=== PATIENT | male | born 1965 | race Caucasian/White ===

== ENCOUNTER → 2021-03-24 08:53 | Outpatient (BNVA) | payer BC, SELFPAY | PROVIDERS: PCP Internal Medicine; Visit Provider Urology ==

== ENCOUNTER → 2021-09-21 08:36 | Outpatient (BNVA) | payer BC, SELFPAY | PROVIDERS: PCP Internal Medicine; Visit Provider Urology | DX: Z13.89 Encounter for screening for other disorder (principal) ==

== ENCOUNTER 2023-01-15 08:26 | Outpatient (AMB) | payer BC, SELFPAY ==
--- NOTE | 2023-01-15 08:32 | A.OFFVIS_ITS ---
Intake Intake Visit Reasons: ED- follow up Intake Note: Patient is present for Follow Up Erectile Dysfunction Urology Med: Sildenafil, Tadalafil (Patient request refill on both) Antibiotic Allergy:None Blood Thinner: None [facility] Allergies No Known Allergies Allergy (Verified 01/15/23 08:34) Medication List - Last Reconciled 01/15/23 by Deepak Vasquez MD atorvastatin 20 mg PO DAILY levothyroxine 137 mcg PO DAILY levothyroxine 150 mcg PO DAILY metformin 500 mg PO DAILY metformin ER 500 mg PO DAILY prednisolone acetate 1% 0 drps ophthalmic (eye) Saccharomyces boulardii (Digest Probiotic (S.boulardii)) 250 mg PO DAILY sildenafil 100 mg PO ONCE PRN 30 days tadalafil 5 mg PO DAILY PRN 90 days HPI HPI Comments History of Present Illness Details Michele is a very pleasant male. He is a patient of Dr Hall. He is seen for the following urologic conditions. - erectile dysfunction Using daily tadalafil with on demand sildenafil - 5 mg and 100 mg Is having issues reaching climax May well represent slow progression for background diabetes Six month follow-up check testosterone as reports variable libido Erectile dysfunction:? In setting of diabetes ? He presents today for?for continued evaluation and management of erectile dysfunction.? Symptoms have been present for/since?ongoing.? Current treatment includes?Viagra/sildenafil - with daily tadalafil ? Prior therapies include?oral medications.? At this time he experiences erections?are partial and adequate for vaginal penetration, that undergo rapid detumesence after penetration, KAREN 8-11 Moderate ED.? Nocturnal erections?do occur.? Currently they are?in a stable relationship.? Therapeutic plan includes?- 6 month [facility] Medical History Erectile dysfunction due to arterial insufficiency Hypothyroidism Pre-diabetes Review of Systems Const Denies chills and Denies fever(s) Card Reports no additional complaints and Denies syncope Resp Denies cough GI Denies abdominal pain and Denies heartburn Reports as per HPI and Denies change in libido Neuro Denies syncope Psych Denies change in libido Endo Denies change in libido Physical Exam Const General: cooperative, healthy appearing, comfortable and no acute distress Orientation/consciousness: patient oriented x3 HEENT Face and sinus: Yes normal facial exam Mouth: moist mucous membranes Neck Neck: Yes normal visual inspection, Yes full ROM and Yes trachea midline Chest Chest palpation & inspection: normal inspection of the chest Resp Effort & Inspection: normal respiratory effort, able to speak in complete sentences and no respiratory distress GI Inspection: Yes normal to inspection Back/Spine/Pelvis Cervical Spine: normal cervical lordosis Thoracic/Lumbar Spine: thoracic and lumbar spine normal to inspection Skin General skin exam: no rashes or lesions noted Neuro General: patient oriented x3, gait normal, tone normal and moves all extremities Extrem General: Yes normal to inspection and Yes capillary refill normal Assessment & Plan Assessment & Plan (1) Low libido: Code(s): R68.82 - Decreased libido (2) Erectile dysfunction associated with type 2 diabetes mellitus: Code(s): E11.69 - Type 2 diabetes mellitus with other specified complication; N52.1 - Erectile dysfunction due to diseases classified elsewhere Plan Six month follow-up lab Orders: Orders Testosterone, Free/Total 6 Months R68.82 - Decreased libido Medications: Refilled tadalafil 5 mg PO DAILY PRN 90 tabs 1RF sexual activity 90 days E11.69 - Type 2 diabetes mellitus with other specified complication, N52.1 - Erectile dysfunction due to diseases classified elsewhere sildenafil administer 30 minutes to 4 hours before activity 100 mg PO ONCE PRN 30 tabs 1RF sexual activity 30 days Patient Instructions: Imaging studies, laboratory and physical exam results were discussed and reviewed in detail. No major barriers to patient understanding were identified. An opportunity to ask questions regarding the treatment plan was provided. All questions were answered. The patient expressed understanding and agreement with the above treatment plan. The patient is aware they should contact our office by phone for worsening of their current condition or the appearance of new urologic symptoms. Compliance is encouraged with any medications and followup testing that is ordered. It is a privilege to participate in the urologic care of your patient. If you have any questions or concerns regarding treatment for the above conditions, or other urologic issues, please do not hesitate to contact me. The office telephone contact is [phone]. This note is constructed using voice recognition software. While every effort has been made to ensure accuracy communications equipment installer errors may have been included. Yours sincerely, Dr Deepak Vasquez MD, [facility] - Urology Providers of Expert, Compassionate Care for the Genitourinary System Coding Level of Care Code Est Pt Level 4 (72662) Diagnoses Low libido R68.82 Erectile dysfunction associated with type 2 diabetes mellitus E11.69; N52.1
== END 2023-01-15 09:16 | disposition home or self-care (01) ==
PROVIDERS: PCP Internal Medicine; Visit Provider Urology
DX: R68.82 Decreased libido (principal); N52.1 Erectile dysfunction due to diseases classified elsewhere; E11.69 Type 2 diabetes mellitus with other specified complication
CPT/HCPCS: 99214

== ENCOUNTER → 2023-01-15 08:26 | Outpatient (BNVA) | payer BC, SELFPAY | PROVIDERS: Visit Provider Urology ==

== ENCOUNTER 2023-07-23 07:56 | Outpatient (AMB) | payer BC, SELFPAY ==
--- NOTE | 2023-07-23 07:57 | MHC.OFFVIS ---
Intake Intake Visit Reasons: 6M Testo(set)Confirmed Intake Note: Patient is Present for Telephone Follow Up Testosterone Urology Med: Sildenafil, Tadalafil Antibiotic Allergy: None Blood Thinner: None Confirmed Pharmacy: [facility] Allergies No Known Allergies Allergy (Verified 07/23/23 07:59) Medication List - Last Reconciled 07/23/23 by Deepak Vasquez MD atorvastatin 20 mg PO DAILY levothyroxine 137 mcg PO DAILY levothyroxine 150 mcg PO DAILY metformin 500 mg PO DAILY metformin ER 500 mg PO DAILY prednisolone acetate 1% 0 drps ophthalmic (eye) Saccharomyces boulardii (Digest Probiotic (S.boulardii)) 250 mg PO DAILY sildenafil 100 mg PO ONCE PRN 30 days tadalafil 5 mg PO DAILY PRN 90 days HPI HPI Comments History of Present Illness Details Michele is a very pleasant male. He is a patient of Dr Hall. He is seen for the following urologic conditions. - erectile dysfunction Telemedicine Evaluation 15 min Consultation [employer] Maryam Video attempted Using daily tadalafil with on demand sildenafil - 5 mg and 100 mg Has noticed continued improvement over the past 6 months Testosterone 600 Did discuss retrograde ejaculation and suggested Sudafed is really the only thing that could be helpful 12 month follow-up Erectile dysfunction:? In setting of diabetes ? He presents today for?for continued evaluation and management of erectile dysfunction.? Symptoms have been present for/since?ongoing.? Current treatment includes?Viagra/sildenafil - with daily tadalafil ? Prior therapies include?oral medications.? At this time he experiences erections?are partial and adequate for vaginal penetration, that undergo rapid detumesence after penetration, KAREN 8-11 Moderate ED.? Nocturnal erections?do occur.? Currently they are?in a stable relationship.? Therapeutic plan includes?- 6 month [facility] Medical History Pre-diabetes Hypothyroidism Erectile dysfunction due to arterial insufficiency Review of Systems Const All systems reviewed & are unremarkable except as noted in HPI and below Reports no additional complaints Resp Reports no additional complaints GI Reports no additional complaints Reports as per HPI Musc Reports no additional complaints Physical Exam Telemedicine evaluation Appropriate responses Regular breathing rate and rhythm HEENT Head: Yes normal to inspection Ears: hearing grossly normal bilaterally Eyes General: appearance normal, both eyes and all related structures Neck Neck: Yes normal visual inspection Chest Chest palpation & inspection: normal inspection of the chest Resp Effort & Inspection: normal respiratory effort and able to speak in complete sentences Assessment & Plan Assessment & Plan (1) Erectile dysfunction associated with type 2 diabetes mellitus: Code(s): E11.69 - Type 2 diabetes mellitus with other specified complication; N52.1 - Erectile dysfunction due to diseases classified elsewhere (2) Low libido: Code(s): R68.82 - Decreased libido Plan 12m f/u Medications: Refilled sildenafil administer 30 minutes to 4 hours before activity 100 mg PO ONCE 30 days PRN 30 tabs 1RF sexual activity tadalafil 5 mg PO DAILY 90 days PRN 90 tabs 1RF sexual activity E11.69 - Type 2 diabetes mellitus with other specified complication, N52.1 - Erectile dysfunction due to diseases classified elsewhere Patient Instructions: Imaging studies, laboratory and physical exam results were discussed and reviewed in detail. No major barriers to patient understanding were identified. An opportunity to ask questions regarding the treatment plan was provided. All questions were answered. The patient expressed understanding and agreement with the above treatment plan. The patient is aware they should contact our office by phone for worsening of their current condition or the appearance of new urologic symptoms. Compliance is encouraged with any medications and followup testing that is ordered. It is a privilege to participate in the urologic care of your patient. If you have any questions or concerns regarding treatment for the above conditions, or other urologic issues, please do not hesitate to contact me. The office telephone contact is [phone]. This note is constructed using voice recognition software. While every effort has been made to ensure accuracy entry level sales associate errors may have been included. Yours sincerely, Dr eDepak Vasquez MD, [facility] - Urology Providers of Expert, Compassionate Care for the Genitourinary System Telehealth Telehealth Location of provider rendering services: practice address Location of patient: address on file Patient Identification confirmed using: Name, : Yes Telehealth method: video Patient verbally consented to treatment: Yes Patient verbally consented to billing insurance company: Yes Patient informed of any privacy concerns related to visit: Yes Coding Level of Care Code Tele Est Pt Level 4 (56304) Diagnoses Erectile dysfunction associated with type 2 diabetes mellitus E11.69; N52.1 Low libido R68.82
== END 2023-07-23 09:53 | disposition home or self-care (01) ==
LOC: HO.HUSH 07:57
PROVIDERS: PCP Internal Medicine; Visit Provider Urology
DX: E11.69 Type 2 diabetes mellitus with other specified complication (principal); N52.1 Erectile dysfunction due to diseases classified elsewhere; R68.82 Decreased libido
CPT/HCPCS: 99213

== ENCOUNTER → 2023-07-23 07:56 | Outpatient (BNVA) | payer BC, SELFPAY | PROVIDERS: PCP Internal Medicine; Visit Provider Urology ==

== ENCOUNTER 2024-07-23 08:30 | Outpatient (AMB) | payer BC, SELFPAY ==
--- NOTE | 2024-07-23 08:32 | MHC.OFFVIS ---
Intake Visit Reasons: 1y follow up(Erectile Dys) Intake Note: Patient is present for 1y Follow Up Erectile Dysfunction Urology Med: Sildenafil, Tadalafil Antibiotic Allergy:None Blood Thinner: None Machine Cutter Required: No Allergies No Known Allergies Allergy (Verified 07/23/24 08:33) HPI Comments Details: Michele is a very pleasant male. He is a patient of Dr Mcallister. He is seen for the following urologic conditions. - erectile dysfunction Twelve month follow-up Using daily tadalafil with on demand sildenafil - 5 mg and 100 mg Stone material had some confusion over prescription Testosterone 600 when last checked Did discuss retrograde ejaculation and suggested Sudafed is really the only thing that could be helpful - remains an issue 12 month follow-up - Occasional nocturia, not on a regular basis. - Minimal bother from urinary symptoms overall. - No weak stream or inability to empty bladder completely reported. - No urinary frequency or incontinence indicated. Erectile dysfunction:? In setting of diabetes ? He presents today for?for continued evaluation and management of erectile dysfunction.? Symptoms have been present for/since?ongoing.? Current treatment includes?Viagra/sildenafil - with daily tadalafil ? Prior therapies include?oral medications.? At this time he experiences erections?are partial and adequate for vaginal penetration, that undergo rapid detumesence after penetration, KAREN 8-11 Moderate ED.? Nocturnal erections?do occur.? Currently they are?in a stable relationship.? [facility] Medical History Pre-diabetes Hypothyroidism Erectile dysfunction due to arterial insufficiency Review of Systems Const Denies chills and Denies fever(s) Card Reports no additional complaints and Denies syncope Resp Denies cough GI Denies abdominal pain and Denies heartburn Reports as per HPI and Denies change in libido Neuro Denies syncope Psych Denies change in libido Endo Denies change in libido Physical Exam Const General: cooperative, healthy appearing, comfortable and no acute distress Orientation/consciousness: patient oriented x3 HEENT Face and sinus: Yes normal facial exam Mouth: moist mucous membranes Neck Neck: Yes normal visual inspection, Yes full ROM and Yes trachea midline Chest Chest palpation & inspection: normal inspection of the chest Resp Effort & Inspection: normal respiratory effort, able to speak in complete sentences and no respiratory distress GI Inspection: Yes normal to inspection Back/Spine/Pelvis Cervical Spine: normal cervical lordosis Thoracic/Lumbar Spine: thoracic and lumbar spine normal to inspection Skin General skin exam: no rashes or lesions noted Neuro General: patient oriented x3, gait normal, tone normal and moves all extremities Extrem General: Yes normal to inspection and Yes capillary refill normal Assessment & Plan Assessment & Plan (1) Erectile dysfunction associated with type 2 diabetes mellitus: Code(s): E11.69 - Type 2 diabetes mellitus with other specified complication; N52.1 - Erectile dysfunction due to diseases classified elsewhere Category: Medical (2) Low libido: Code(s): R68.82 - Decreased libido Category: Medical Plan Plan I will correct the tadalafil prescription to a 90-day supply. Pseudoephedrine is advised for managing retrograde ejaculation symptoms. The patient needs pseudoephedrine prior to sexual activity as per recommendations. Routine PSA checks noted. Colitis screenings are stable, with future colonoscopy advised at 5-year intervals. Patient was informed and verbally consented to the use of an ambient scribe for clinic note documentation during this visit. Discussion Notes I reviewed with the patient the importance of proper medication supply for erectile dysfunction management. We discussed retrograde ejaculation extensively, including the use of pseudoephedrine as a non-prescription solution and its physiological function. Follow-up screenings for PSA due to the patient's age were advised. We confirmed normal findings from recent colonoscopies, noting the mitigation of previous polyps, and future surveillance colonoscopies were discussed and agreed upon. Consent and understanding were obtained regarding treatment modifications and future screening plans. Additionally, reassurance was provided about the relatively low risk of retrograde ejaculation to overall health, highlighting pseudoephedrine benefits in improving sexual satisfaction. Patient Instructions - Ensure a consistent supply of tadalafil 5 mg for daily use. - Acquire and use [id number] pseudoephedrine prior to sexual activity to manage retrograde ejaculation. - Schedule regular PSA screenings if not already being conducted. - Continue routine five-year intervals for colonoscopy screenings. - Report any changes in urinary symptoms or bowel habits promptly. - Discuss any new urological concerns with me during follow-up appointments. Medications: Changed From tadalafil 5 mg PO DAILY 90 days PRN 90 tabs 1RF sexual activity E11.69 - Type 2 diabetes mellitus with other specified complication, N52.1 - Erectile dysfunction due to diseases classified elsewhere To tadalafil [facility] [id number] 5 mg PO DAILY PRN 90 tabs 3RF sexual activity 90 days E11.69 - Type 2 diabetes mellitus with other specified complication, N52.1 - Erectile dysfunction due to diseases classified elsewhere Refilled sildenafil administer 30 minutes to 4 hours before activity 100 mg PO ONCE PRN 30 tabs 1RF sexual activity 30 days Patient Instructions: This note is constructed using voice recognition software. While every effort has been made to ensure accuracy corporate statistical financial analyst errors may have been included. Imaging studies, laboratory and physical exam results were discussed and reviewed in detail. No major barriers to patient understanding were identified. An opportunity to ask questions regarding the treatment plan was provided. All questions were answered. The patient expressed understanding and agreement with the above treatment plan. The patient is aware they should contact our office by phone for worsening of their current condition or the appearance of new urologic symptoms. Compliance is encouraged with any medications and followup testing that is ordered. It is a privilege to participate in the urologic care of your patient. If you have any questions or concerns regarding treatment for the above conditions, or other urologic issues, please do not hesitate to contact me. The office telephone contact is [phone]. Sincerely, Dr Deepak Vasquez MD, [facility] - Urology Compassionate Specialist Care for the Genitourinary System Coding Level of Care Code Est Pt Level 4 (00332) Diagnoses Erectile dysfunction associated with type 2 diabetes mellitus E11.69; N52.1 Low libido R68.82
--- OUTSIDE RECORDS SUMMARY | 2024-07-23 08:58 | XMS_ITS ---
Author Organization [facility] Address [address] [place] [address] Care Team Providers Care Laborer [employer] Name Role Phone ZAKI PERDOMO Unavailable [phone] REASON FOR VISIT Urgent visit request Encounters Encounter Location Date Provider Diagnosis [facility] [address] [address] 06/08/2024 ZAKI PERDOMO PLAN OF TREATMENT Next Appt Details Provider Name:ZAKI PERDOMO, 08/10/2024 10:00:00 AM, [address] [address], [place], [address], Progress Notes * Michele SHERMANDOB:1965 (59 yo M)Acc No.[id number]:06/08/2024 Patient:??Michele SHERMAN :1965?Age:59 Y?Sex:Gagandeep pierre Address:[address] [place] [id number] * true * Date:??
--- OUTSIDE RECORDS SUMMARY | 2024-07-23 08:58 | XMS_ITS | Continuity of Care Document ---
Author Organization [facility] [address] [place] [address] Phone [phone] Care Team Providers Care Paramedic Supervisor Name Role Phone Mireya Mcallister M.D. Care Team Information Optical Dispenser [phone] Problems Active Problems Provider Date Graves' disease Carlton Cortez M.D. Onset: 0 07/18/2022 Hyperlipidemia Carlton Cortez M.D. Onset: 0 07/18/2022 Erectile dysfunction Carlton Cortez M.D. Ons et: 07/18/2022 Hypercholesterolemia Carlton Cortez M.D. Ons et: 07/18/2022 Hypothyroidism Carlton Cortez M.D. Onset: 0 07/19/2022 Social History Type Date Description Comments Sex Unknown ETOH Use Has consumed alcohol in the past Tobacco Use Start: Unknown End: Unknown Patient is a former smoker Allergies and adverse reactions Description No Known Drug Allergies Medications Active Medications SIG Qnty Indications Order ing Provider Date Levothyroxine [id number] Tablets Take 1 Tablet By Mouth Every Day In The Morning 90tabs Carlton Cortez M.D. 07/19/2022 Sildenafil [id number] Tablets Take One Tablet By Mouth Every Day as Needed For Sexual Activity Administer 30 Deepak Vasquez [id number] Tablets Take 1 Tablet Daily as Needed For Sexual Activity. Deepak Vasquez Atorvastatin [id number] Tablets 1 by mouth every day 90tabs Unknown Metformin HCL [id number] Tablets ER 24HR 1 tab by mouth every day Unknown Vital Signs Date Vital Result Comment 08/09/2023 2:00pm BP Systolic 110 mmHg BP Diastolic 80 mmHg Heart Rate 76 /min Height 72 inches 6'0 Weight 170.25 lb BMI (Body Mass Index) 23.1 kg/m2 Results Test Acquired Date Facility Test Result H/L Range N ote TSH+Free T4 11/27/2023 [facility] TSH 1.700 uIU/mL 0.450-4.50 0 T4,Free(Dir ect) 1.82 ng/dL High 0.82-1.77 Laboratory test finding 07/17/[address] [facility] TSH With Reflex To FT4 10.00 uIU/mL High (0.4-4.2) Free T4 1.14 ng/dL (0.70-1.80 ) Laboratory test finding 11/05/[address] [facility] TSH With Reflex To FT4 1.61 uIU/mL (0.4-4.2) Laboratory test finding 07/18/[address] [facility] TSH 21.00 uIU/mL High (0.4-4.2) Medical Devices Description No Information Available Encounters Type Date Location Provider Dx Diagnosis Office Visit 08/09/2023 1:45p Main Office Carlton Cortez M.D. E03.9 Hypothyroidism, unspecified Assessments Date Code Description Provider 08/09/2023 E03.9 Hypothyroidism Carlton johnson M.D. Plan of Treatment Future Appointment(s):* 08/10/2024 9:00 am - Carlton Cortez M.D. at Main Office 08/09/2023 - Carlton Cortez M.D.* E03.9 Hypothyroidism Functional Status Description No Information Available Mental Status Description No Information Available Referrals Description No Information Available
--- OUTSIDE RECORDS SUMMARY | 2024-07-23 08:58 | XMS_ITS ---
Author Organization [facility] Address [address] [place] [address] Care Team Providers Care Airplane Dispatcher Name Role Phone ZAKI PERDOMO Unavailable [phone] Lucita Vega Unavailable [phone] ALLERGIES No Known Allergies REASON FOR VISIT Pt here for urgent visit for left eye swelling for a few days. MEDICATIONS Medication SIG (Take, Route, Frequency, Duration) Notes Start Date End Date Status Erythromycin 5 MG/GM 1 application into the lower eyelid of affected eye Ophthalmic Four times a day for 7 days 06/08/2024 Active metFORMIN HCl ER 500 MG TAKE 1 TABLET BY MOUTH WITH EVENING MEAL ONCE DAILY for 90 Active Berberine HCI 500 MG as directed Orally Active Atorvastatin Calcium 40 MG 1 tablet Oral ly Once a day for 90 days Active Levothyroxine Sodium 137 MCG 1 capsule in the morning on an empty stomach Orally Once a day Active Viagra 100 MG 1 tablet as needed O rally Once a day for 90 days Active SOCIAL HISTORY Tobacco Use: Social History Observation Description Date Details (start date - stop date) Current Smoker NA - NA Sex Assigned At : Social History Observation Description Sex Assigned At Unknown Tobacco Use/Smoking Question Answer Notes Are you a current smoker How often do you smoke cigarettes? some days, bu t not every day How many cigarettes a day do you smoke? 6-10 Section Notes: admits to vaping nicotine and marijuana, occasional cigarette occasional marijuana edibles VITAL SIGNS Blood pressure systolic 128 mm Hg 06/08/19 25 Blood pressure diastolic 70 mm Hg 025 Heart Rate 70 /min 06/08/2024 Height 72 in 06/08/2024 Weight 170 lbs 06/08/2024 BMI 23.05 kg/m2 06/08/2024 Oximetry 98 % 06/08/2024 Encounters Encounter Location Date Provider Diagnosis [address] [facility] [address] [place] [address] 06/08/2024 Lucita Mariaacarlyn Hordeolum ext ernum of left lower eyelid H00.015 ASSESSMENTS Encounter Date Diagnosis Assessment Notes Treatment Notes Treatment Clinical Notes Section Notes 06/08/2024 Hordeolum externum of left lower eyelid (ICD-10 - H00.015) #Hordeolum. Left lower eyelid with blocked duct and swelling to the lower lid. No discharge or erythema tenderness. No concerns of periorbital cellulitis based on current symptoms and exam. Discussed warm moist compress 4-5 times a day. Erythromycin ointment given to apply to area. Follow-up if no improvement in 1 week sooner with any new or worsening symptoms. Discussed signs and symptoms to monitor for. Case discussed with collaborating physician Misty Mcallister who reviewed the assessment and plan. Chart, medications, labs, vital signs reviewed. Dictation was accomplished with the use of mi[employer]ibr[employer] voice recognition software, prone to medical misidentifications and grammatical errors. This is unintentional and the practitioner does try to identify and correct these, but some could still be present. Please do not hesitate to contact practitioner for clarification. All questions answered to patients satisfaction. Patient verbalized understanding of diagnosis and treatments explained. To call sooner prior to next visit it any questions/concerns arise. PLAN OF TREATMENT Medication Medication Name Sig Start Date Stop Date Notes Erythromycin 5 MG/GM 1 application into the lower eyelid of affected eye Ophthalmic Four times a day for 7 days 06/08/2024 Next Appt Details Provider Name:ZAKI ELLIELUIS, 08/10/2024 10:00:00 AM, [address] [facility], [address], [place], [address], Progress Notes * Michele SHERMANDOB:1965 (59 yo M)Acc No.[id number]:06/08/2024 Progress Notes Patient:??Michele SHERMAN Provider:??Lucita Vega PA-C :1965?Age:59 Y?Sex:Gagandeep pierre Date:06/08/2024 Address:[address] [place] [address] [id number] Subjective: * Chief Complaints: * ?1. Pt here for urgent visit for left eye swelling for a few days.. * HPI: ?Constitutional:? Michele is a 59-year-old male here today with concerns of left lower eyelid swelling times few days. No vision changes. No discharge. No fever or redness. No recent URI symptoms. He is otherwise feeling well. He does wear glasses. Has been doing cold compress to the area. Otherwise feeling well. * ROS:?All Other Systems:?Review of Systems (ROS)??All others negative except those mentioned in HPI.? * Medical History:??Hyperthyro idism. * Surgical History:??hernia re pair 2019, lymph node removed from under armpit 2019. * Family History:??Father: dec eased.??Mother: alive.??1 sister(s) . .?? father passed of alcoholism. * Social History:?Tobacco Use:??Tobacco Use/Smoking??Are you a??current smoker,??How often do you smoke cigarettes???some days, but not every day,??How many cigarettes a day do you smoke???6-10.?admits to vaping nicotine and marijuana, occasional cigarette ???occasional marijuana edibles. * Medications:??Taking Atorvas tatin Calcium 40 MG Tablet 1 tablet Orally Once a day , Taking Berberine HCI 500 MG Capsule as directed Orally , Taking Viagra 100 MG Tablet 1 tablet as needed Orally Once a day , Taking Levothyroxine Sodium 137 MCG Capsule 1 capsule in the morning on an empty stomach Orally Once a day , Taking metFORMIN HCl ER 500 MG Tablet Extended Release 24 Hour TAKE 1 TABLET BY MOUTH WITH EVENING MEAL ONCE DAILY , Discontinued CeleBREX 200 MG Capsule 1 capsule with food Orally Once a day , Discontinued Celecoxib 200 MG Capsule TAKE 1 CAPSULE BY MOUTH WITH FOOD ONCE DAILY , Discontinued Sildenafil Citrate 100 MG Tablet TAKE 1 TABLET BY MOUTH DAILY NEEDED , Discontinued [email or web address] G7 Sensor - BrewDoganeous DIRECTED E11.9 30 DAYS , Medication List reviewed and reconciled with the patient * Allergies:??N.K.D.A. Objective: * Vitals:??HR:70/min, BP:128/7 0mm Hg, Wt:170lbs, BMI:23.05Index, Ht: 72 in, Oxygen sat %:98%. * Physical Examination:?General: Well appearing, well nourished, age appropriate in no acute distress. Speaking in full, clear sentences. ?SKIN: Warm, dry intact. No rashes/lesions. ?HEENT: Normocephalic atraumatic. EOM intact. No nystagmus noted. left lower lid border with blocked duct, swelling to lower lid. No drainage. No erythema. PERRLA. Oropharynx without erythema, swelling or exudates. ?LUNGS: Clear to auscultation bilaterally, no wheezes, rales or rhonchi ?CARDIAC: Regular rate and rhythm, no murmurs, rubs or gallops. ?Extremities: Warm and well perfused. No edema noted. ?Neuro: CN II-XI grossly intact. Speaking in full sentences. Hearing intact. Assessment: * Assessment: 1.??Hordeolum externum of le ft lower eyelid - H00.015 (Primary)?? #Hordeolum. Left lower eyeli d with blocked duct and swelling to the lower lid. No discharge or erythema tenderness. No concerns of periorbital cellulitis based on current symptoms and exam. Discussed warm moist compress 4-5 times a day. Erythromycin ointment given to apply to area. Follow-up if no improvement in 1 week sooner with any new or worsening symptoms. Discussed signs and symptoms to monitor for. Case discussed with collaborating physician Misty Mcallister who reviewed the assessment and plan. Chart, medications, labs, vital signs reviewed. Dictation was accomplished with the use of [employer] voice recognition software, prone to medical misidentifications and grammatical errors. This is unintentional and the practitioner does try to identify and correct these, but some could still be present. Please do not hesitate to contact practitioner for clarification. All questions answered to patients satisfaction. Patient verbalized understanding of diagnosis and treatments explained. To call sooner prior to next visit it any questions/concerns arise. Plan: * Treatment: Care Plan: * Problems:?? * Images: Billing Information: * Visit Code:?? 96745 Office Visit, Est Pt., Level 4. * Procedure Codes:?? Care Plan Details* * Sign off status: Completed true * Provider:??Lcuita Vega PA-C Date:??05/27 History and Physical Notes * HPI (History of Present Illness) Category Sub-Category Detail Notes Category Not es Constitutional Michele is a 59- year-old male here today with concerns of left lower eyelid swelling times few days. No vision changes. No discharge. No fever or redness. No recent URI symptoms. He is otherwise feeling well. He does wear glasses. Has been doing cold compress to the area. Otherwise feeling well. Physical Examination Category Sub-Category Detail Notes Section Note s General: Well appearing, well nourished, age appropriate in no acute distress. Speaking in full, clear sentences. SKIN: Warm, dry intact. No rashes/lesions. HEENT: Normocephalic atraumatic. EOM intact. No nystagmus noted. left lower lid border with blocked duct, swelling to lower lid. No drainage. No erythema. PERRLA. Oropharynx without erythema, swelling or exudates. LUNGS: Clear to auscultation bilaterally, no wheezes, rales or rhonchi CARDIAC: Regular rate and rhythm, no murmurs, rubs or gallops. Extremities: Warm and well perfused. No edema noted. Neuro: CN II-XI grossly intact. Speaking in full sentences. Hearing intact.
--- OUTSIDE RECORDS SUMMARY | 2024-07-23 08:58 | XMS_ITS ---
Author Organization [facility] Address [address] [place] [id number] Care Team Providers Care Shoe Packer Name Role Phone ZAKI PERDOMO Unavailable [phone] ALLERGIES No Known Allergies REASON FOR VISIT Pt seen in office for f/u MEDICATIONS Medication SIG (Take, Route, Frequency, Duration) Notes Start Date End Date Status Celecoxib 200 MG TAKE 1 CAPSULE BY MO UT WITH FOOD ONCE DAILY for 30 Active Atorvastatin Calcium 40 MG 1 tablet Oral ly Once a day for 90 days Active Dexcom G7 Sensor - DIRECTED E11.9 30 DAYS for 30 Active metFORMIN HCl ER 500 MG TAKE 1 TABLET BY MOUTH WITH EVENING MEAL ONCE DAILY for 90 Active Sildenafil Citrate 100 MG TAKE 1 TABLET BY MOUTH DAILY NEEDED for 90 Active CeleBREX 200 MG 1 capsule with food Orally Once a day for 30 days 08/28/2023 Active Levothyroxine Sodium 137 MCG 1 capsule i n the morning on an empty stomach Orally Once a day Active Berberine HCI 500 MG as directed Orally Active Viagra 100 MG 1 tablet as needed Orally Once a day for 90 days Active [...] and marijuana, occasional cigarette occasional marijuana edibles PROBLEMS Problem Type ICD Code Onset Dates Problem Status W/U Status Risk SNOMED Code Notes Problem Benign liver cyst (K76.89) Active confirmed Disease of liver (353382902) VITAL SIGNS Blood pressure systolic 122 mm Hg 04/04/20 24 Blood pressure diastolic 86 mm Hg 024 Heart Rate 74 /min 04/04/2024 Height 72 in 04/04/2024 Weight 168 lbs 04/04/2024 BMI 22.78 kg/m2 04/04/2024 Oximetry 98 % 04/04/2024 Encounters Encounter Location Date Provider Diagnosis [facility] [address] [place] [address] 04/04/2024 ZAKI PERDOMO Pure hypercholestero lemia E78.00 ; Pre-diabetes R73.03 ; Other male erectile dysfunction N52.8 ; Pulmonary nodule R91.1 ; Benign liver cyst K76.89 and Acquired hypothyroidism E03.9 ASSESSMENTS Encounter Date Diagnosis Assessment Notes Treatment Notes Treatment Clinical Notes Section Notes 04/04/2024 Pure hypercholesterolemia (ICD-10 - E78.00) #Weight Management 04/04/2024 Chronic conditions are stable Will see him back for a physical and updated labs in the spring [address] showed benign pulmonary nodule morphology no need for further screening or surveillance Of note, some information is being carried forward from prior records for informational purposes only and is being cited so that efficiency, safety and quality of the patient's care is not compromised This note was prepared using voice recognition software and direct typing Please excuse inadvertent software project engineer or typing errors, or uncorrected word substitutions Although every attempt has been made by the provider to proofread this document, occasional misspellings and typographical errors may still be present Due to the previous pandemic, and the use of personal protective equipment (PPE) This may decrease voice recognition accuracy Inadvertent software project engineer errors may occur 04/04/2024 Pre-diabetes (ICD-10 - R73.03) #Weight Management 04/04/2024 Chronic conditions are stable Will see him back for a physical and updated labs in the spring [address] showed benign pulmonary nodule morphology no need for further screening or surveillance Of note, some information is being carried forward from prior records for informational purposes only and is being cited so that efficiency, safety and quality of the patient's care is not compromised This note was prepared using voice recognition software and direct typing Please excuse inadvertent software project engineer or typing errors, or uncorrected word substitutions Although every attempt has been made by the provider to proofread this document, occasional misspellings and typographical errors may still be present Due to the previous pandemic, and the use of personal protective equipment (PPE) This may decrease voice recognition accuracy Inadvertent software project engineer errors may occur 04/04/2024 Other male erectile dysfunction (ICD-10 - N52.8) #Weight Management 04/04/2024 Chronic conditions are stable Will see him back for a physical and updated labs in the spring [address] showed benign pulmonary nodule morphology no need for further screening or surveillance Of note, some information is being carried forward from prior records for informational purposes only and is being cited so that efficiency, safety and quality of the patient's care is not compromised This note was prepared using voice recognition software and direct typing Please excuse inadvertent software project engineer or typing errors, or uncorrected word substitutions Although every attempt has been made by the provider to proofread this document, occasional misspellings and typographical errors may still be present Due to the previous pandemic, and the use of personal protective equipment (PPE) This may decrease voice recognition accuracy Inadvertent software project engineer errors may occur 04/04/2024 Pulmonary nodule (ICD-10 - R91.1) #Weight Management 04/04/2024 Chronic conditions are stable Will see him back for a physical and updated labs in the spring [address] showed benign pulmonary nodule morphology no need for further screening or surveillance Of note, some information is being carried forward from prior records for informational purposes only and is being cited so that efficiency, safety and quality of the patient's care is not compromised This note was prepared using voice recognition software and direct typing Please excuse inadvertent software project engineer or typing errors, or uncorrected word substitutions Although every attempt has been made by the provider to proofread this document, occasional misspellings and typographical errors may still be present Due to the previous pandemic, and the use of personal protective equipment (PPE) This may decrease voice recognition accuracy Inadvertent software project engineer errors may occur 04/04/2024 Benign liver cyst (ICD-10 - K76.89) #Weight Management 04/04/2024 Chronic conditions are stable Will see him back for a physical and updated labs in the spring [address] showed benign pulmonary nodule morphology no need for further screening or surveillance Of note, some information is being carried forward from prior records for informational purposes only and is being cited so that efficiency, safety and quality of the patient's care is not compromised This note was prepared using voice recognition software and direct typing Please excuse inadvertent software project engineer or typing errors, or uncorrected word substitutions Although every attempt has been made by the provider to proofread this document, occasional misspellings and typographical errors may still be present Due to the previous pandemic, and the use of personal protective equipment (PPE) This may decrease voice recognition accuracy Inadvertent software project engineer errors may occur 04/04/2024 Acquired hypothyroid ism (ICD-10 - E03.9) #Weight Management 04/04/2024 Chronic conditions are stable Will see him back for a physical and updated labs in the spring [address] showed benign pulmonary nodule morphology no need for further screening or surveillance Of note, some information is being carried forward from prior records for informational purposes only and is being cited so that efficiency, safety and quality of the patient's care is not compromised This note was prepared using voice recognition software and direct typing Please excuse inadvertent software project engineer or typing errors, or uncorrected word substitutions Although every attempt has been made by the provider to proofread this document, occasional misspellings and typographical errors may still be present Due to the previous pandemic, and the use of personal protective equipment (PPE) This may decrease voice recognition accuracy Inadvertent software project engineer errors may occur PLAN OF TREATMENT Medication Medication Name Sig Start Date Stop Date Notes Atorvastatin Calcium 40 MG 1 tablet Oral ly Once a day for 90 days Pending Test Test Name Order Date CBC (COMPLETE BLOOD COUNT) WITH DIFF 01/2024 COMPREHENSIVE METABOLIC PANEL 04/04/2024 HEMOGLOBIN A1C 04/04/2024 LIPID PANEL 04/04/2024 T4, TOTAL 04/04/2024 TSH 04/04/2024 URINALYSIS, COMPLETE 04/04/2024 PSA (FREE AND TOTAL) 04/04/2024 VITAMIN D, 1,25 DIHYDROXY LC/MS/MS 04/04 Next Appt Details Provider Name:ZAKI PERDOMO, 08/10/2024 10:00:00 AM, [address] [facility], [facility] [address], [place], [address], Progress Notes * Michele SHERMANDOB:1965 (59 yo M)Acc No.[id number]:04/04/2024 Progress Notes Patient:??Michele SHERMAN Provider:??ZAKI PERDOMO NP :1965?Age:59 Y?Sex:Gagandeep pierre Date:04/04/2024 Address:[address], [id number] Subjective: * Chief Complaints: * ?1. Pt seen in office f or f/u. * HPI: ?Constitutional:? Patient is here for Chronic Disease Management follow-up visit ?Patient seen and examined. ? Full past medical history, social history, family history, ?allergies and current medications were reviewed and updated. ?Acute Concerns/Problem List: ?04/04/2024 ?He underwent repeat annual chest CT without in February 2024 ?Stable previously noted 5 mm right pulmonary nodule in the most inferior right lower lobe ?This is benign given its morphology ?Checking sugars periodically with Dexcom CGM ?He says the sensors fall off quite a bit ? A1c November 27, 6.1 ?Improved Total cholesterol 152, LDL 93, HDL 48, triglycerides 53 ?We increased his atorvastatin intensity to 40 mg as well as increasing his metformin ?to twice a day to help combat insulin resistance ?Thyroid chronically managed by endocrine ?history of radioiodine treatment on chronic levothyroxine ?CAT scan of the abdomen and pelvis 12/2022 ?Multiple low attenuated lesions are noted scattered throughout the liver which is new from 2004 ?MRI of the abdomen with contrast liver protocol, ?Revealing multiple benign simple hepatic cysts and nothing suspicious ?Saw property specialist last month, Updated blood work June 2023 ?Total cholesterol 190, LDL 137, HDL 52, triglycerides 56 ?TSH of 10, T4, 1.14 ?Total testosterone 608, SHBG 59.1 ?Health maintenance ?Flu 2023 defers ?Colonoscopy 2023, GI Jason ?COVID: UTD ?PSA screening stable ?Smoking History: ?Non-smoker, former smoker ?started at 16, 1ppd history until 41 yo. ?25 PPD smoking history ?No etoh use. * ROS:?All Other Systems:?Review of Systems (ROS)??All others negative except those mentioned in HPI.? * Medical History:??Hyperthyro idism. * Surgical History:??hernia re pair 2018, lymph node removed from under armpit 2019. * Hospitalization/Major Diagno stic Procedure:??Denies Past Hospitalization. * Family History:??Father: dec eased.??Mother: alive.??1 sister(s) [...] stomach Orally Once a day , Taking CeleBREX 200 MG Capsule 1 capsule with food Orally Once a day , Taking Celecoxib 200 MG Capsule TAKE 1 CAPSULE BY MOUTH WITH FOOD ONCE DAILY , Taking metFORMIN HCl ER 500 MG Tablet Extended Release 24 Hour TAKE 1 TABLET BY MOUTH WITH EVENING MEAL ONCE DAILY , Taking Sildenafil Citrate 100 MG Tablet TAKE 1 TABLET BY MOUTH DAILY NEEDED , Taking Dexcom G7 Sensor - Miscellaneous DIRECTED E11.9 30 DAYS , Medication List reviewed and reconciled with the patient * Allergies:??N.K.D.A. Objective: * Vitals:??HR:74/min, BP:122/8 6mm Hg, Wt:168lbs, BMI:22.78Index, Ht: 72 in, Oxygen sat %:98%. * Examination: ?General Examination: ?GENERAL APPEARANCE:??in no acute distress, well developed, well nourished.??HEAD:??normocephalic, atraumatic.??EYES:??pupils equal, round, reactive to light and accommodation.??EARS:??normal.??ORAL CAVITY:??mucosa moist.??THROAT:??clear.??NECK/THYROID:??neck supple, full range of motion, no cervical lymphadenopathy.??SKIN:??no suspicious lesions, warm and dry.??HEART:??no murmurs, regular rate and rhythm, S1, S2 normal.??LUNGS:??clear to auscultation bilaterally.??ABDOMEN:??normal, bowel sounds present, soft, nontender, nondistended.??EXTREMITIES:??no clubbing, cyanosis, or edema.??NEUROLOGIC:??nonfocal, motor strength normal upper and lower extremities, sensory exam intact.? Assessment: * Assessment: 1.??Pre-diabetes - R73.03 (P rimary)??2.??Pure hypercholesterolemia - E78.00??3.??Other male erectile dysfunction - N52.8??4.??Pulmonary nodule - R91.1??5.??Benign liver cyst - K76.89??6.??Acquired hypothyroidism - E03.9?? #Weight Management 04/04/2024 Chronic conditions are stable Will see him back for a physical and updated labs in the spring [address] showed benign pulmonary nodule morphology no need for further screening or surveillance Of note, some information is being carried forward from prior records for informational purposes only and is being cited so that efficiency, safety and quality of the patient's care is not compromised This note was prepared using voice recognition software and direct typing Please excuse inadvertent software project engineer or typing errors, or uncorrected word substitutions Although every attempt has been made by the provider to proofread this document, occasional misspellings and typographical errors may still be present Due to the previous pandemic, and the use of personal protective equipment (PPE) This may decrease voice recognition accuracy Inadvertent software project engineer errors may occur. Plan: * Treatment: 2.??Acquired hypothyroidism?LAB: CBC (COMPLETE BLOOD COUNT) WITH DIFF ?LAB: COMPREHENSIVE METABOLIC PANEL ?LAB: HEMOGLOBIN A1C ?LAB: LIPID PANEL ?LAB: T4, TOTAL ?LAB: TSH ?LAB: URINALYSIS, COMPLETE ?LAB: PSA (FREE AND TOTAL) ?LAB: VITAMIN D, 1,25 DIHYDROXY LC/MS/MS * Images: Billing Information: * Visit Code:?? 89561 Office Visit, Est Pt., Level 4. * Procedure Codes:?? Care Plan Details* * Sign off status: Completed true * Provider:??ZAKI PERDOMO NP Date:??01/2024 History and Physical Notes * HPI (History of Present Illness) Category Sub-Category Detail Notes Category Not es Constitutional Patient is here for Chronic Disease Management follow-up visit Patient seen and examined. Full past medical history, social history, family history, allergies and current medications were reviewed and updated. Acute Concerns/Problem List: 04/04/2024 He underwent repeat annual chest CT without in February 2024 Stable previously noted 5 mm right pulmonary nodule in the most inferior right lower lobe This is benign given its morphology Checking sugars periodically with Dexcom CGM He says the sensors fall off quite a bit A1c November 27.1 Improved Total cholesterol 152, LDL 93, HDL 48, triglycerides 53 We increased his atorvastatin intensity to 40 mg as well as increasing his metformin to twice a day to help combat insulin resistance Thyroid chronically managed by endocrine history of radioiodine treatment on chronic levothyroxine CAT scan of the abdomen and pelvis 12/2022 Multiple low attenuated lesions are noted scattered throughout the liver which is new from 2004 MRI of the abdomen with contrast liver protocol, Revealing multiple benign simple hepatic cysts and nothing suspicious Saw property specialist last month, Updated blood work June 2023 Total cholesterol 190, LDL 137, HDL 52, triglycerides 56 TSH of 10, T4, 1.14 Total testosterone 608, SHBG 59.1 Health maintenance Flu 2023 defers Colonoscopy 2023, GI Jason COVID: UTD PSA screening stable Smoking History: Non-smoker, former smoker started at 16, 1ppd history until 41 yo. 25 PPD smoking history No etoh use Examination Category Sub-Category Detail Notes Category Not es General Examination GENERAL APPEARANCE: in no ac ismael distress, well developed, well nourished HEAD: normocephalic, atrau matic EYES: pupils equal, round, reactive to light and accommodation EARS: normal THROAT: clear NECK/THYROID: neck supple, full ra nge of motion, no cervical lymphadenopathy HEART: no murmurs, regular rate and rhythm, S1, S2 normal LUNGS: clear to auscultatio n bilaterally ABDOMEN: normal, bowel sounds present, soft, nontender, nondistended NEUROLOGIC: nonfocal, motor stre ngth normal upper and lower extremities, sensory exam intact SKIN: no suspicious lesion s, warm and dry EXTREMITIES: no clubbing, cyanosi s, or edema ORAL CAVITY: mucosa moist
--- OUTSIDE RECORDS SUMMARY | 2024-07-23 08:58 | XMS_ITS | Patient Health Record ---
Author Organization [facility] Address [address] [place] [address] Care Team Providers Care Tactical Intelligence Officer Name Role Phone ZAKI PERDOMO Unavailable [phone] LIZETT MCALLISTER Unavailable [phone] MariaaLucita alcocer Unavailable [phone] ALLERGIES No Known Allergies RESULTS Component Value Reference Range Notes CT Chest WO Reviewed date:03/10/2024 05:33:40 PM Interpretation: Performing Lab: Notes/Report: Original Ordering Provider: ZAKI PERDOMO UTILITY MAINTENANCE WORKER [facility] Hemoglobin [id number] Reviewed date:11/28/2023 11:05:02 AM Interpretation: Performing Lab:[facility], [address] [facility], Phone - [phone], Director - Mitchel Notes/Report: Hemoglobin A1c 6.1 4.8-5.6 % . Prediabetes: 5.7 - 6.4 Diabetes: >6.4 Glycemic control for adults with diabetes: <7.0 Lipid Panel-[id number] Reviewed date:11/28/2023 11:05:02 AM Interpretation: Performing Lab:[facility], [address] [facility], Phone - [phone], Director - Mitchel Notes/Report: Cholesterol, Total 152 100-199 mg/dL Triglycerides 53 0-149 mg/dL HDL Cholesterol 48 >39 mg/dL VLDL Cholesterol Marvel 11 5-40 mg/dL LDL Chol Calc ([facility]) 93 0-99 mg/dL LDL Calc Comment: REASON FOR REFERRAL No Information MEDICATIONS Medication SIG (Take, Route, Frequency, Duration) Notes Start Date End Date Status Erythromycin 5 MG/GM 1 application into the lower eyelid of affected eye Ophthalmic Four times a day for 7 days 06/08/2024 Active metFORMIN HCl ER 500 MG TAKE 1 TABLET BY MOUTH WITH EVENING MEAL ONCE DAILY for 90 Active Berberine HCI 500 MG as directed Orally Active Levothyroxine Sodium 137 MCG 1 capsule in the morning on an empty stomach Orally Once a day Active Viagra 100 MG 1 tablet as needed O rally Once a day for 90 days Active Atorvastatin Calcium 40 MG TAKE 1 TABLET BY MOUTH ONCE DAILY for 90 Active IMMUNIZATIONS Vaccine Route Administration Date Status Comme nts Tdap IM Intramuscular 08/06/2022 Administered SOCIAL HISTORY Tobacco Use: Social History Observation [...] cigarettes a day do you smoke? 6-10 Alcohol Screen (Audit-C) Question Answer Notes Did you have a drink contain ing alcohol in the past year? Yes How often did you have a dri nk containing alcohol in the past year? 2 to 3 times a week (3 points) How many drinks did you have on a typical day when you were drinking in the past year? 3 or 4 drinks (1 point) Points 4 Interpretation Positive Section Notes: admits to vaping nicotine and marijuana, occasional cigarette occasional marijuana edibles admits to vaping nicotine and marijuana, occasional cigarette occasional marijuana edibles admits to vaping nicotine and marijuana, occasional cigarette occasional marijuana edibles admits to vaping nicotine and marijuana, occasional cigarette occasional marijuana edibles admits to vaping nicotine and marijuana, occasional cigarette occasional marijuana edibles PROBLEMS Problem Type ICD Code Onset Dates Problem Status W/U Status Risk SNOMED Code Notes Problem Hypothyroidism, unspecified (E03.9) Active confirmed Hypothyr oidism (13487817) Problem Vitamin D deficiency , unspecified (E55.9) Active confirmed Vitamin D deficiency (36878348) Problem Hyperlipidemia, unspecified (E78.5) Active confirmed Hyperlip idemia (49384762) Problem Other male erectile dysfunction (N52.8) Active confirmed Problem Encounter for genera l adult medical examination without abnormal findings (Z00.00) Active confirmed 193993915 Problem Pure hypercholesterolemia (E78.00) Active confirmed 045923374 Problem Hyperlipidemia, unspecified hyperlipidemia type (E78.5) Active confirmed Hyperlipidaemia (75144269) Problem Acquired hypothyroidism (E03.9) Active confirmed 600798716 Problem Hypothyroidism, unspecified type (E03.9) Active confirmed Hypothyroidism (04417454) Problem Pulmonary nodule (R91.1) Active confirmed 936588023 Problem Pre-diabetes (R73.03) Active confirmed Prediabetes (791240648) Problem Left elbow pain (M25.522) Active confirmed 89145963 Problem Type 2 diabetes mellitus without complication, without long-term current use of insulin (E11.9) Active confirmed 103479034 Problem TMJ (temporomandibul ar joint disorder) (M26.609) Active confirmed 12846198 Problem Liver lesion (K76.9) Active confirmed L esion of liver (183400191) Problem Benign liver cyst (K76.89) Active confirmed Disease of live r (246588652) VITAL SIGNS Heart Rate 70 /min 06/08/2024 Oximetry 98 % 06/08/2024 Blood pressure diastolic 70 mm Hg 06/08/2024 Height 72 in 06/08/2024 Blood pressure systolic 128 mm Hg 06/08/2024 Weight 170 lbs 06/08/2024 BMI 23.05 kg/m2 06/08/2024 Encounters Encounter Location Date Provider Diagnosis [place] [address] [address] 11/22/2023 ZAKI PERDOMO [facility] [address] 08/09/2023 ZAKI PERDOMO Pure hypercholestero lemia E78.00 ; Pre-diabetes R73.03 ; Hypothyroidism, unspecified E03.9 ; Vitamin D deficiency, unspecified E55.9 ; Other male erectile dysfunction N52.8 ; Pulmonary nodule R91.1 ; Benign liver cyst K76.89 ; Type 2 diabetes mellitus without complication, without long-term current use of insulin E11.9 and Encounter for general adult medical examination without abnormal findings Z00.00 [facility] [address] [place] [address] 08/28/2023 LIZETT MCALLISTER TMJ (temporomandibul ar joint disorder) M26.609 [place] [address] [address] 10/07/2023 ZAKI BORHOT Pure hypercholestero lemia E78.00 ; Pre-diabetes R73.03 ; Hypothyroidism, unspecified E03.9 ; Other male erectile dysfunction N52.8 ; Pulmonary nodule R91.1 and Benign liver cyst K76.89 [facility] [address] [place] [address] 11/30/2023 ZAKI ELLIEHOT Pure hypercholestero lemia E78.00 ; Pre-diabetes R73.03 ; Hypothyroidism, unspecified E03.9 ; Other male erectile dysfunction N52.8 ; Pulmonary nodule R91.1 and Benign liver cyst K76.89 [facility] [address] [place] [address] 04/04/2024 ZAKI BORHOT Pure hypercholestero lemia E78.00 ; Pre-diabetes R73.03 ; Other male erectile dysfunction N52.8 ; Pulmonary nodule R91.1 ; Benign liver cyst K76.89 and Acquired hypothyroidism E03.[address] [address] 06/08/2024 Lucita Svrcek Hordeolum externum o f left lower eyelid H00.015 [address] [facility] [address] [address] 08/28/2023 ZAKI PERDOMO [address] [facility] [address] [address] 08/28/2023 ZAKI PERDOMO [facility] [address] [place] [address] 08/28/2023 ZAKI PERDOMO [facility] [address] [address] 10/02/[address] [facility] [address] [address] 10/17/2023 ZAKI PERDOMO [address] [facility] [address] [place] [address] 03/11/2024 ZAKI PERDOMO [address] [facility] [address] [place] [address] 04/01/2024 ZAKI PERDOMO [facility] [address] [facility] [address] [place] [address] 06/08/2024 ZAKI BORHOT ASSESSMENTS Encounter Date Diagnosis Assessment Notes Treatment Notes Treatment Clinical Notes Section Notes 08/09/2023 Pure hypercholesterolemia (ICD-10 - E78.00) 08/09/2023 Patient here today for CCM Liver lesion, MRI of the abdomen w, w/o Unremarkable benign hepatic cysts Pulmonary nodule, 1 year follow-up CT chest w/o due 12/2023* strong familial hx of DM, HLD *Increase atorvastatin to 40 mg Some hemoconcentraation, H&H slightly up TSH chronically managed by endocrine Recently increased dosage because his TSH was too high. history of radioiodine treatment on chronic levothyroxine We discussed the role of cholesterol and atherosclerosis. Cholesterols broken down into some particles. Cholesterol very important for her body and has an important role in the synthesis of various hormones and neurotransmitters. However, today's cholesterol can have potential complications. Small density LDL particles that are oxidized or particularly dangerous. HDL cholesterol can have a protective effect. Elevated triglycerides levels are also dangerous. An elevated triglyceride and HDL ratio could be a sign of insulin resistance. Statins, fibrates, niacin, fish oil, DHEA, can be beneficial in treatment of dyslipidemia. Lifestyle modification with exercise and appropriate nutrition can decrease the risk of atherosclerosis due to dyslipidemia. Of note, some information is being carried forward from prior records for informational purposes only and is being cited so that efficiency, safety and quality of the patient's care is not compromised This note was prepared using voice recognition software and direct typing Please excuse inadvertent marine electrician apprentice or typing errors, or uncorrected word substitutions Although every attempt has been made by the provider to proofread this document, occasional misspellings and typographical errors may still be present Due to the previous pandemic, and the use of personal protective equipment (PPE) This may decrease voice recognition accuracy Inadvertent marine electrician apprentice errors may occur 08/09/2023 Pre-diabetes (ICD-10 - R73.03) 08/09/2023 Patient here today for CCM Liver lesion, MRI of the abdomen w, w/o Unremarkable benign hepatic cysts Pulmonary nodule, 1 year follow-up CT chest w/o due 12/2023* strong familial hx of DM, HLD *Increase atorvastatin to 40 mg Some hemoconcentraation, H&H slightly up TSH chronically managed by endocrine Recently increased dosage because his TSH was too high. history of radioiodine treatment on chronic levothyroxine We discussed the role of cholesterol and atherosclerosis. Cholesterols broken down into some particles. Cholesterol very important for her body and has an important role in the synthesis of various hormones and neurotransmitters. However, today's cholesterol can have potential complications. Small density LDL particles that are oxidized or particularly dangerous. HDL cholesterol can have a protective effect. Elevated triglycerides levels are also dangerous. An elevated triglyceride and HDL ratio could be a sign of insulin resistance. Statins, fibrates, niacin, fish oil, DHEA, can be beneficial in treatment of dyslipidemia. Lifestyle modification with exercise and appropriate nutrition can decrease the risk of atherosclerosis due to dyslipidemia. Of note, some information is being carried forward from prior records for informational purposes only and is being cited so that efficiency, safety and quality of the patient's care is not compromised This note was prepared using voice recognition software and direct typing Please excuse inadvertent marine electrician apprentice or typing errors, or uncorrected word substitutions Although every attempt has been made by the provider to proofread this document, occasional misspellings and typographical errors may still be present Due to the previous pandemic, and the use of personal protective equipment (PPE) This may decrease voice recognition accuracy Inadvertent marine electrician apprentice errors may occur 08/28/2023 TMJ (temporomandibul ar joint disorder) (ICD-10 - M26.609) 58-year-old m willy with a past medical history of hypothyroidism, hyperlipidemia who presents today with pain on the left side of his face. On physical examination, the jaw is without erythema or edema. Upon palpation of the TMJ, crepitus is noted. The mouth is without ulcers. The patient states that he has been told in the past that he grinds his teeth. We told the patient that he likely has TMJ secondary to grinding his teeth. The patient was told to get a mouth guard from the pharmacy to wear at night to prevent him from grinding his teeth. The patient is encouraged to follow-up with the oral surgeon his dentist referred him to. The patient will be prescribed Celebrex 200 mg PO daily x 2 weeks. The patient agreed to message Dr. Mcallister through portal if the pain does not subside. 10/07/2023 Pure hypercholesterolemia (ICD-10 - E78.00) 08/09/2023 He has an appointment with me next month for routine follow-up I have increased his metformin to twice a day to help and try to combat this insulin resistance Patient will continue CGM Will recontact us if any issues occur We discussed alternative options including GLP-1 as well as SGLT Liver lesion, MRI of the abdomen w, w/o Unremarkable benign hepatic cysts Pulmonary nodule, 1 year follow-up CT chest w/o due 12/2023* strong familial hx of DM, HLD *Increase atorvastatin to 40 mg Some hemoconcentraation, H&H slightly up TSH chronically managed by endocrine Recently increased dosage because his TSH was too high. history of radioiodine treatment on chronic levothyroxine We discussed the role of cholesterol and atherosclerosis. Cholesterols broken down into some particles. Cholesterol very important for her body and has an important role in the synthesis of various hormones and neurotransmitters. However, today's cholesterol can have potential complications. Small density LDL particles that are oxidized or particularly dangerous. HDL cholesterol can have a protective effect. Elevated triglycerides levels are also dangerous. An elevated triglyceride and HDL ratio could be a sign of insulin resistance. Statins, fibrates, niacin, fish oil, DHEA, can be beneficial in treatment of dyslipidemia. Lifestyle modification with exercise and appropriate nutrition can decrease the risk of atherosclerosis due to dyslipidemia. Of note, some information is being carried forward from prior records for informational purposes only and is being cited so that efficiency, safety and quality of the patient's care is not compromised This note was prepared using voice recognition software and direct typing Please excuse inadvertent marine electrician apprentice or typing errors, or uncorrected word substitutions Although every attempt has been made by the provider to proofread this document, occasional misspellings and typographical errors may still be present Due to the previous pandemic, and the use of personal protective equipment (PPE) This may decrease voice recognition accuracy Inadvertent marine electrician apprentice errors may occur 10/07/2023 Pre-diabetes (ICD-10 - R73.03) 08/09/2023 He has an appointment with me next month for routine follow-up I have increased his metformin to twice a day to help and try to combat this insulin resistance Patient will continue CGM Will recontact us if any issues occur We discussed alternative options including GLP-1 as well as SGLT Liver lesion, MRI of the abdomen w, w/o Unremarkable benign hepatic cysts Pulmonary nodule, 1 year follow-up CT chest w/o due 12/2023* strong familial hx of DM, HLD *Increase atorvastatin to 40 mg Some hemoconcentraation, H&H slightly up TSH chronically managed by endocrine Recently increased dosage because his TSH was too high. history of radioiodine treatment on chronic levothyroxine We discussed the role of cholesterol and atherosclerosis. Cholesterols broken down into some particles. Cholesterol very important for her body and has an important role in the synthesis of various hormones and neurotransmitters. However, today's cholesterol can have potential complications. Small density LDL particles that are oxidized or particularly dangerous. HDL cholesterol can have a protective effect. Elevated triglycerides levels are also dangerous. An elevated triglyceride and HDL ratio could be a sign of insulin resistance. Statins, fibrates, niacin, fish oil, DHEA, can be beneficial in treatment of dyslipidemia. Lifestyle modification with exercise and appropriate nutrition can decrease the risk of atherosclerosis due to dyslipidemia. Of note, some information is being carried forward from prior records for informational purposes only and is being cited so that efficiency, safety and quality of the patient's care is not compromised This note was prepared using voice recognition software and direct typing Please excuse inadvertent marine electrician apprentice or typing errors, or uncorrected word substitutions Although every attempt has been made by the provider to proofread this document, occasional misspellings and typographical errors may still be present Due to the previous pandemic, and the use of personal protective equipment (PPE) This may decrease voice recognition accuracy Inadvertent marine electrician apprentice errors may occur 11/30/2023 Pure hypercholesterolemia (ICD-10 - E78.00) Acute Concerns/Problem List: 11/30/2023 He is due for updated chest CT next month to assess pulmonary nodule Liver lesion, MRI of the abdomen with and without was unremarkable benign hepatic cyst Continue statin intensity Continue metformin Glycemic control is much better TSH chronically managed by endocrinology with history of radioiodine treatment on chronic levothyroxine We discussed the role of cholesterol and atherosclerosis. Cholesterols broken down into some particles. Cholesterol very important for her body and has an important role in the synthesis of various hormones and neurotransmitters. However, today's cholesterol can have potential complications. Small density LDL particles that are oxidized or particularly dangerous. HDL cholesterol can have a protective effect. Elevated triglycerides levels are also dangerous. An elevated triglyceride and HDL ratio could be a sign of insulin resistance. Statins, fibrates, niacin, fish oil, DHEA, can be beneficial in treatment of dyslipidemia. Lifestyle modification with exercise and appropriate nutrition can decrease the risk of atherosclerosis due to dyslipidemia. Of note, some information is being carried forward from prior records for informational purposes only and is being cited so that efficiency, safety and quality of the patient's care is not compromised This note was prepared using voice recognition software and direct typing Please excuse inadvertent marine electrician apprentice or typing errors, or uncorrected word substitutions Although every attempt has been made by the provider to proofread this document, occasional misspellings and typographical errors may still be present Due to the previous pandemic, and the use of personal protective equipment (PPE) This may decrease voice recognition accuracy Inadvertent marine electrician apprentice errors may occur 04/04/2024 Pure hypercholesterolemia (ICD-10 - E78.00) #Weight [...] software and direct typing Please excuse inadvertent marine electrician apprentice or typing errors, or uncorrected word substitutions Although every attempt has been made by the provider to proofread this document, occasional misspellings and typographical errors may still be present Due to the previous pandemic, and the use of personal protective equipment (PPE) This may decrease voice recognition accuracy Inadvertent marine electrician apprentice errors may occur 06/08/2024 Hordeolum externum o f left lower eyelid (ICD-10 - H00.015) #Hordeolum. [...] Dictation was accomplished with the use of [employer] voice recognition software, prone to medical misidentifications and grammatical errors. This is unintentional and the practitioner does try to identify and correct these, but some could still be present. Please do not hesitate to contact practitioner for clarification. All questions answered to patients satisfaction. Patient verbalized understanding of diagnosis and treatments explained. To call sooner prior to next visit it any questions/concerns arise. 04/04/2024 Pre-diabetes (ICD-10 - R73.03) #Weight Management [...] software and direct typing Please excuse inadvertent marine electrician apprentice or typing errors, or uncorrected word substitutions Although every attempt has been made by the provider to proofread this document, occasional misspellings and typographical errors may still be present Due to the previous pandemic, and the use of personal protective equipment (PPE) This may decrease voice recognition accuracy Inadvertent marine electrician apprentice errors may occur 04/04/2024 Other male erectile [...] software and direct typing Please excuse inadvertent marine electrician apprentice or typing errors, or uncorrected word substitutions Although every attempt has been made by the provider to proofread this document, occasional misspellings and typographical errors may still be present Due to the previous pandemic, and the use of personal protective equipment (PPE) This may decrease voice recognition accuracy Inadvertent marine electrician apprentice errors may occur 11/30/2023 Pre-diabetes (ICD-10 - R73.03) Acute Concerns/Problem List: 11/30/2023 He is due for updated chest CT next month to assess pulmonary nodule Liver lesion, MRI of the abdomen with and without was unremarkable benign hepatic cyst Continue statin intensity Continue metformin Glycemic control is much better TSH chronically managed by endocrinology with history of radioiodine treatment on chronic levothyroxine We discussed the role of cholesterol and atherosclerosis. Cholesterols broken down into some particles. Cholesterol very important for her body and has an important role in the synthesis of various hormones and neurotransmitters. However, today's cholesterol can have potential complications. Small density LDL particles that are oxidized or particularly dangerous. HDL cholesterol can have a protective effect. Elevated triglycerides levels are also dangerous. An elevated triglyceride and HDL ratio could be a sign of insulin resistance. Statins, fibrates, niacin, fish oil, DHEA, can be beneficial in treatment of dyslipidemia. Lifestyle modification with exercise and appropriate nutrition can decrease the risk of atherosclerosis due to dyslipidemia. Of note, some information is being carried forward from prior records for informational purposes only and is being cited so that efficiency, safety and quality of the patient's care is not compromised This note was prepared using voice recognition software and direct typing Please excuse inadvertent marine electrician apprentice or typing errors, or uncorrected word substitutions Although every attempt has been made by the provider to proofread this document, occasional misspellings and typographical errors may still be present Due to the previous pandemic, and the use of personal protective equipment (PPE) This may decrease voice recognition accuracy Inadvertent marine electrician apprentice errors may occur 10/07/2023 Hypothyroidism, unspecified (ICD-10 - E03.9) 08/09/2023 He has an appointment with me next month for routine follow-up I have increased his metformin to twice a day to help and try to combat this insulin resistance Patient will continue CGM Will recontact us if any issues occur We discussed alternative options including GLP-1 as well as SGLT Liver lesion, MRI of the abdomen w, w/o Unremarkable benign hepatic cysts Pulmonary nodule, 1 year follow-up CT chest w/o due 12/2023* strong familial hx of DM, HLD *Increase atorvastatin to 40 mg Some hemoconcentraation, H&H slightly up TSH chronically managed by endocrine Recently increased dosage because his TSH was too high. history of radioiodine treatment on chronic levothyroxine We discussed the role of cholesterol and atherosclerosis. Cholesterols broken down into some particles. Cholesterol very important for her body and has an important role in the synthesis of various hormones and neurotransmitters. However, today's cholesterol can have potential complications. Small density LDL particles that are oxidized or particularly dangerous. HDL cholesterol can have a protective effect. Elevated triglycerides levels are also dangerous. An elevated triglyceride and HDL ratio could be a sign of insulin resistance. Statins, fibrates, niacin, fish oil, DHEA, can be beneficial in treatment of dyslipidemia. Lifestyle modification with exercise and appropriate nutrition can decrease the risk of atherosclerosis due to dyslipidemia. Of note, some information is being carried forward from prior records for informational purposes only and is being cited so that efficiency, safety and quality of the patient's care is not compromised This note was prepared using voice recognition software and direct typing Please excuse inadvertent marine electrician apprentice or typing errors, or uncorrected word substitutions Although every attempt has been made by the provider to proofread this document, occasional misspellings and typographical errors may still be present Due to the previous pandemic, and the use of personal protective equipment (PPE) This may decrease voice recognition accuracy Inadvertent marine electrician apprentice errors may occur 08/09/2023 Hypothyroidism, unspecified (ICD-10 - E03.9) 08/09/2023 Patient here today for CCM Liver lesion, MRI of the abdomen w, w/o Unremarkable benign hepatic cysts Pulmonary nodule, 1 year follow-up CT chest w/o due 12/2023* strong familial hx of DM, HLD *Increase atorvastatin to 40 mg Some hemoconcentraation, H&H slightly up TSH chronically managed by endocrine Recently increased dosage because his TSH was too high. history of radioiodine treatment on chronic levothyroxine We discussed the role of cholesterol and atherosclerosis. Cholesterols broken down into some particles. Cholesterol very important for her body and has an important role in the synthesis of various hormones and neurotransmitters. However, today's cholesterol can have potential complications. Small density LDL particles that are oxidized or particularly dangerous. HDL cholesterol can have a protective effect. Elevated triglycerides levels are also dangerous. An elevated triglyceride and HDL ratio could be a sign of insulin resistance. Statins, fibrates, niacin, fish oil, DHEA, can be beneficial in treatment of dyslipidemia. Lifestyle modification with exercise and appropriate nutrition can decrease the risk of atherosclerosis due to dyslipidemia. Of note, some information is being carried forward from prior records for informational purposes only and is being cited so that efficiency, safety and quality of the patient's care is not compromised This note was prepared using voice recognition software and direct typing Please excuse inadvertent marine electrician apprentice or typing errors, or uncorrected word substitutions Although every attempt has been made by the provider to proofread this document, occasional misspellings and typographical errors may still be present Due to the previous pandemic, and the use of personal protective equipment (PPE) This may decrease voice recognition accuracy Inadvertent marine electrician apprentice errors may occur 08/09/2023 Vitamin D deficiency , unspecified (ICD-10 - E55.9) 08/09/2023 Patient here today for CCM Liver lesion, MRI of the abdomen w, w/o Unremarkable benign hepatic cysts Pulmonary nodule, 1 year follow-up CT chest w/o due 12/2023* strong familial hx of DM, HLD *Increase atorvastatin to 40 mg Some hemoconcentraation, H&H slightly up TSH chronically managed by endocrine Recently increased dosage because his TSH was too high. history of radioiodine treatment on chronic levothyroxine We discussed the role of cholesterol and atherosclerosis. Cholesterols broken down into some particles. Cholesterol very important for her body and has an important role in the synthesis of various hormones and neurotransmitters. However, today's cholesterol can have potential complications. Small density LDL particles that are oxidized or particularly dangerous. HDL cholesterol can have a protective effect. Elevated triglycerides levels are also dangerous. An elevated triglyceride and HDL ratio could be a sign of insulin resistance. Statins, fibrates, niacin, fish oil, DHEA, can be beneficial in treatment of dyslipidemia. Lifestyle modification with exercise and appropriate nutrition can decrease the risk of atherosclerosis due to dyslipidemia. Of note, some information is being carried forward from prior records for informational purposes only and is being cited so that efficiency, safety and quality of the patient's care is not compromised This note was prepared using voice recognition software and direct typing Please excuse inadvertent marine electrician apprentice or typing errors, or uncorrected word substitutions Although every attempt has been made by the provider to proofread this document, occasional misspellings and typographical errors may still be present Due to the previous pandemic, and the use of personal protective equipment (PPE) This may decrease voice recognition accuracy Inadvertent marine electrician apprentice errors may occur 10/07/2023 Other male erectile dysfunction (ICD-10 - N52.8) 08/09/2023 He has an appointment with me next month for routine follow-up I have increased his metformin to twice a day to help and try to combat this insulin resistance Patient will continue CGM Will recontact us if any issues occur We discussed alternative options including GLP-1 as well as SGLT Liver lesion, MRI of the abdomen w, w/o Unremarkable benign hepatic cysts Pulmonary nodule, 1 year follow-up CT chest w/o due 12/2023* strong familial hx of DM, HLD *Increase atorvastatin to 40 mg Some hemoconcentraation, H&H slightly up TSH chronically managed by endocrine Recently increased dosage because his TSH was too high. history of radioiodine treatment on chronic levothyroxine We discussed the role of cholesterol and atherosclerosis. Cholesterols broken down into some particles. Cholesterol very important for her body and has an important role in the synthesis of various hormones and neurotransmitters. However, today's cholesterol can have potential complications. Small density LDL particles that are oxidized or particularly dangerous. HDL cholesterol can have a protective effect. Elevated triglycerides levels are also dangerous. An elevated triglyceride and HDL ratio could be a sign of insulin resistance. Statins, fibrates, niacin, fish oil, DHEA, can be beneficial in treatment of dyslipidemia. Lifestyle modification with exercise and appropriate nutrition can decrease the risk of atherosclerosis due to dyslipidemia. Of note, some information is being carried forward from prior records for informational purposes only and is being cited so that efficiency, safety and quality of the patient's care is not compromised This note was prepared using voice recognition software and direct typing Please excuse inadvertent marine electrician apprentice or typing errors, or uncorrected word substitutions Although every attempt has been made by the provider to proofread this document, occasional misspellings and typographical errors may still be present Due to the previous pandemic, and the use of personal protective equipment (PPE) This may decrease voice recognition accuracy Inadvertent marine electrician apprentice errors may occur 11/30/2023 Hypothyroidism, unspecified (ICD-10 - E03.9) Acute Concerns/Problem List: 11/30/2023 He is due for updated chest CT next month to assess pulmonary nodule Liver lesion, MRI of the abdomen with and without was unremarkable benign hepatic cyst Continue statin intensity Continue metformin Glycemic control is much better TSH chronically managed by endocrinology with history of radioiodine treatment on chronic levothyroxine We discussed the role of cholesterol and atherosclerosis. Cholesterols broken down into some particles. Cholesterol very important for her body and has an important role in the synthesis of various hormones and neurotransmitters. However, today's cholesterol can have potential complications. Small density LDL particles that are oxidized or particularly dangerous. HDL cholesterol can have a protective effect. Elevated triglycerides levels are also dangerous. An elevated triglyceride and HDL ratio could be a sign of insulin resistance. Statins, fibrates, niacin, fish oil, DHEA, can be beneficial in treatment of dyslipidemia. Lifestyle modification with exercise and appropriate nutrition can decrease the risk of atherosclerosis due to dyslipidemia. Of note, some information is being carried forward from prior records for informational purposes only and is being cited so that efficiency, safety and quality of the patient's care is not compromised This note was prepared using voice recognition software and direct typing Please excuse inadvertent marine electrician apprentice or typing errors, or uncorrected word substitutions Although every attempt has been made by the provider to proofread this document, occasional misspellings and typographical errors may still be present Due to the previous pandemic, and the use of personal protective equipment (PPE) This may decrease voice recognition accuracy Inadvertent marine electrician apprentice errors may occur 04/04/2024 Pulmonary nodule (ICD-10 [...] software and direct typing Please excuse inadvertent marine electrician apprentice or typing errors, or uncorrected word substitutions Although every attempt has been made by the provider to proofread this document, occasional misspellings and typographical errors may still be present Due to the previous pandemic, and the use of personal protective equipment (PPE) This may decrease voice recognition accuracy Inadvertent marine electrician apprentice errors may occur 04/04/2024 Benign liver cyst [...] software and direct typing Please excuse inadvertent marine electrician apprentice or typing errors, or uncorrected word substitutions Although every attempt has been made by the provider to proofread this document, occasional misspellings and typographical errors may still be present Due to the previous pandemic, and the use of personal protective equipment (PPE) This may decrease voice recognition accuracy Inadvertent marine electrician apprentice errors may occur 11/30/2023 Other male erectile dysfunction (ICD-10 - N52.8) Acute Concerns/Problem List: 11/30/2023 He is due for updated chest CT next month to assess pulmonary nodule Liver lesion, MRI of the abdomen with and without was unremarkable benign hepatic cyst Continue statin intensity Continue metformin Glycemic control is much better TSH chronically managed by endocrinology with history of radioiodine treatment on chronic levothyroxine We discussed the role of cholesterol and atherosclerosis. Cholesterols broken down into some particles. Cholesterol very important for her body and has an important role in the synthesis of various hormones and neurotransmitters. However, today's cholesterol can have potential complications. Small density LDL particles that are oxidized or particularly dangerous. HDL cholesterol can have a protective effect. Elevated triglycerides levels are also dangerous. An elevated triglyceride and HDL ratio could be a sign of insulin resistance. Statins, fibrates, niacin, fish oil, DHEA, can be beneficial in treatment of dyslipidemia. Lifestyle modification with exercise and appropriate nutrition can decrease the risk of atherosclerosis due to dyslipidemia. Of note, some information is being carried forward from prior records for informational purposes only and is being cited so that efficiency, safety and quality of the patient's care is not compromised This note was prepared using voice recognition software and direct typing Please excuse inadvertent marine electrician apprentice or typing errors, or uncorrected word substitutions Although every attempt has been made by the provider to proofread this document, occasional misspellings and typographical errors may still be present Due to the previous pandemic, and the use of personal protective equipment (PPE) This may decrease voice recognition accuracy Inadvertent marine electrician apprentice errors may occur 10/07/2023 Pulmonary nodule (ICD-10 - R91.1) 08/09/2023 He has an appointment with me next month for routine follow-up I have increased his metformin to twice a day to help and try to combat this insulin resistance Patient will continue CGM Will recontact us if any issues occur We discussed alternative options including GLP-1 as well as SGLT Liver lesion, MRI of the abdomen w, w/o Unremarkable benign hepatic cysts Pulmonary nodule, 1 year follow-up CT chest w/o due 12/2023* strong familial hx of DM, HLD *Increase atorvastatin to 40 mg Some hemoconcentraation, H&H slightly up TSH chronically managed by endocrine Recently increased dosage because his TSH was too high. history of radioiodine treatment on chronic levothyroxine We discussed the role of cholesterol and atherosclerosis. Cholesterols broken down into some particles. Cholesterol very important for her body and has an important role in the synthesis of various hormones and neurotransmitters. However, today's cholesterol can have potential complications. Small density LDL particles that are oxidized or particularly dangerous. HDL cholesterol can have a protective effect. Elevated triglycerides levels are also dangerous. An elevated triglyceride and HDL ratio could be a sign of insulin resistance. Statins, fibrates, niacin, fish oil, DHEA, can be beneficial in treatment of dyslipidemia. Lifestyle modification with exercise and appropriate nutrition can decrease the risk of atherosclerosis due to dyslipidemia. Of note, some information is being carried forward from prior records for informational purposes only and is being cited so that efficiency, safety and quality of the patient's care is not compromised This note was prepared using voice recognition software and direct typing Please excuse inadvertent marine electrician apprentice or typing errors, or uncorrected word substitutions Although every attempt has been made by the provider to proofread this document, occasional misspellings and typographical errors may still be present Due to the previous pandemic, and the use of personal protective equipment (PPE) This may decrease voice recognition accuracy Inadvertent marine electrician apprentice errors may occur 08/09/2023 Other male erectile dysfunction (ICD-10 - N52.8) 08/09/2023 Patient here today for CCM Liver lesion, MRI of the abdomen w, w/o Unremarkable benign hepatic cysts Pulmonary nodule, 1 year follow-up CT chest w/o due 12/2023* strong familial hx of DM, HLD *Increase atorvastatin to 40 mg Some hemoconcentraation, H&H slightly up TSH chronically managed by endocrine Recently increased dosage because his TSH was too high. history of radioiodine treatment on chronic levothyroxine We discussed the role of cholesterol and atherosclerosis. Cholesterols broken down into some particles. Cholesterol very important for her body and has an important role in the synthesis of various hormones and neurotransmitters. However, today's cholesterol can have potential complications. Small density LDL particles that are oxidized or particularly dangerous. HDL cholesterol can have a protective effect. Elevated triglycerides levels are also dangerous. An elevated triglyceride and HDL ratio could be a sign of insulin resistance. Statins, fibrates, niacin, fish oil, DHEA, can be beneficial in treatment of dyslipidemia. Lifestyle modification with exercise and appropriate nutrition can decrease the risk of atherosclerosis due to dyslipidemia. Of note, some information is being carried forward from prior records for informational purposes only and is being cited so that efficiency, safety and quality of the patient's care is not compromised This note was prepared using voice recognition software and direct typing Please excuse inadvertent marine electrician apprentice or typing errors, or uncorrected word substitutions Although every attempt has been made by the provider to proofread this document, occasional misspellings and typographical errors may still be present Due to the previous pandemic, and the use of personal protective equipment (PPE) This may decrease voice recognition accuracy Inadvertent marine electrician apprentice errors may occur 10/07/2023 Benign liver cyst (ICD-10 - K76.89) 08/09/2023 He has an appointment with me next month for routine follow-up I have increased his metformin to twice a day to help and try to combat this insulin resistance Patient will continue CGM Will recontact us if any issues occur We discussed alternative options including GLP-1 as well as SGLT Liver lesion, MRI of the abdomen w, w/o Unremarkable benign hepatic cysts Pulmonary nodule, 1 year follow-up CT chest w/o due 12/2023* strong familial hx of DM, HLD *Increase atorvastatin to 40 mg Some hemoconcentraation, H&H slightly up TSH chronically managed by endocrine Recently increased dosage because his TSH was too high. history of radioiodine treatment on chronic levothyroxine We discussed the role of cholesterol and atherosclerosis. Cholesterols broken down into some particles. Cholesterol very important for her body and has an important role in the synthesis of various hormones and neurotransmitters. However, today's cholesterol can have potential complications. Small density LDL particles that are oxidized or particularly dangerous. HDL cholesterol can have a protective effect. Elevated triglycerides levels are also dangerous. An elevated triglyceride and HDL ratio could be a sign of insulin resistance. Statins, fibrates, niacin, fish oil, DHEA, can be beneficial in treatment of dyslipidemia. Lifestyle modification with exercise and appropriate nutrition can decrease the risk of atherosclerosis due to dyslipidemia. Of note, some information is being carried forward from prior records for informational purposes only and is being cited so that efficiency, safety and quality of the patient's care is not compromised This note was prepared using voice recognition software and direct typing Please excuse inadvertent marine electrician apprentice or typing errors, or uncorrected word substitutions Although every attempt has been made by the provider to proofread this document, occasional misspellings and typographical errors may still be present Due to the previous pandemic, and the use of personal protective equipment (PPE) This may decrease voice recognition accuracy Inadvertent marine electrician apprentice errors may occur 11/30/2023 Pulmonary nodule (ICD-10 - R91.1) Acute Concerns/Problem List: 11/30/2023 He is due for updated chest CT next month to assess pulmonary nodule Liver lesion, MRI of the abdomen with and without was unremarkable benign hepatic cyst Continue statin intensity Continue metformin Glycemic control is much better TSH chronically managed by endocrinology with history of radioiodine treatment on chronic levothyroxine We discussed the role of cholesterol and atherosclerosis. Cholesterols broken down into some particles. Cholesterol very important for her body and has an important role in the synthesis of various hormones and neurotransmitters. However, today's cholesterol can have potential complications. Small density LDL particles that are oxidized or particularly dangerous. HDL cholesterol can have a protective effect. Elevated triglycerides levels are also dangerous. An elevated triglyceride and HDL ratio could be a sign of insulin resistance. Statins, fibrates, niacin, fish oil, DHEA, can be beneficial in treatment of dyslipidemia. Lifestyle modification with exercise and appropriate nutrition can decrease the risk of atherosclerosis due to dyslipidemia. Of note, some information is being carried forward from prior records for informational purposes only and is being cited so that efficiency, safety and quality of the patient's care is not compromised This note was prepared using voice recognition software and direct typing Please excuse inadvertent marine electrician apprentice or typing errors, or uncorrected word substitutions Although every attempt has been made by the provider to proofread this document, occasional misspellings and typographical errors may still be present Due to the previous pandemic, and the use of personal protective equipment (PPE) This may decrease voice recognition accuracy Inadvertent marine electrician apprentice errors may occur 08/09/2023 Pulmonary nodule (ICD-10 - R91.1) 08/09/2023 Patient here today for CCM Liver lesion, MRI of the abdomen w, w/o Unremarkable benign hepatic cysts Pulmonary nodule, 1 year follow-up CT chest w/o due 12/2023* strong familial hx of DM, HLD *Increase atorvastatin to 40 mg Some hemoconcentraation, H&H slightly up TSH chronically managed by endocrine Recently increased dosage because his TSH was too high. history of radioiodine treatment on chronic levothyroxine We discussed the role of cholesterol and atherosclerosis. Cholesterols broken down into some particles. Cholesterol very important for her body and has an important role in the synthesis of various hormones and neurotransmitters. However, today's cholesterol can have potential complications. Small density LDL particles that are oxidized or particularly dangerous. HDL cholesterol can have a protective effect. Elevated triglycerides levels are also dangerous. An elevated triglyceride and HDL ratio could be a sign of insulin resistance. Statins, fibrates, niacin, fish oil, DHEA, can be beneficial in treatment of dyslipidemia. Lifestyle modification with exercise and appropriate nutrition can decrease the risk of atherosclerosis due to dyslipidemia. Of note, some information is being carried forward from prior records for informational purposes only and is being cited so that efficiency, safety and quality of the patient's care is not compromised This note was prepared using voice recognition software and direct typing Please excuse inadvertent marine electrician apprentice or typing errors, or uncorrected word substitutions Although every attempt has been made by the provider to proofread this document, occasional misspellings and typographical errors may still be present Due to the previous pandemic, and the use of personal protective equipment (PPE) This may decrease voice recognition accuracy Inadvertent marine electrician apprentice errors may occur 04/04/2024 Acquired hypothyroidism (ICD-10 - E03.9) #Weight Management 04/04/2024 Chronic [...] software and direct typing Please excuse inadvertent marine electrician apprentice or typing errors, or uncorrected word substitutions Although every attempt has been made by the provider to proofread this document, occasional misspellings and typographical errors may still be present Due to the previous pandemic, and the use of personal protective equipment (PPE) This may decrease voice recognition accuracy Inadvertent marine electrician apprentice errors may occur 08/09/2023 Benign liver cyst (ICD-10 - K76.89) 08/09/2023 Patient here today for CCM Liver lesion, MRI of the abdomen w, w/o Unremarkable benign hepatic cysts Pulmonary nodule, 1 year follow-up CT chest w/o due 12/2023* strong familial hx of DM, HLD *Increase atorvastatin to 40 mg Some hemoconcentraation, H&H slightly up TSH chronically managed by endocrine Recently increased dosage because his TSH was too high. history of radioiodine treatment on chronic levothyroxine We discussed the role of cholesterol and atherosclerosis. Cholesterols broken down into some particles. Cholesterol very important for her body and has an important role in the synthesis of various hormones and neurotransmitters. However, today's cholesterol can have potential complications. Small density LDL particles that are oxidized or particularly dangerous. HDL cholesterol can have a protective effect. Elevated triglycerides levels are also dangerous. An elevated triglyceride and HDL ratio could be a sign of insulin resistance. Statins, fibrates, niacin, fish oil, DHEA, can be beneficial in treatment of dyslipidemia. Lifestyle modification with exercise and appropriate nutrition can decrease the risk of atherosclerosis due to dyslipidemia. Of note, some information is being carried forward from prior records for informational purposes only and is being cited so that efficiency, safety and quality of the patient's care is not compromised This note was prepared using voice recognition software and direct typing Please excuse inadvertent marine electrician apprentice or typing errors, or uncorrected word substitutions Although every attempt has been made by the provider to proofread this document, occasional misspellings and typographical errors may still be present Due to the previous pandemic, and the use of personal protective equipment (PPE) This may decrease voice recognition accuracy Inadvertent marine electrician apprentice errors may occur 11/30/2023 Benign liver cyst (ICD-10 - K76.89) Acute Concerns/Problem List: 11/30/2023 He is due for updated chest CT next month to assess pulmonary nodule Liver lesion, MRI of the abdomen with and without was unremarkable benign hepatic cyst Continue statin intensity Continue metformin Glycemic control is much better TSH chronically managed by endocrinology with history of radioiodine treatment on chronic levothyroxine We discussed the role of cholesterol and atherosclerosis. Cholesterols broken down into some particles. Cholesterol very important for her body and has an important role in the synthesis of various hormones and neurotransmitters. However, today's cholesterol can have potential complications. Small density LDL particles that are oxidized or particularly dangerous. HDL cholesterol can have a protective effect. Elevated triglycerides levels are also dangerous. An elevated triglyceride and HDL ratio could be a sign of insulin resistance. Statins, fibrates, niacin, fish oil, DHEA, can be beneficial in treatment of dyslipidemia. Lifestyle modification with exercise and appropriate nutrition can decrease the risk of atherosclerosis due to dyslipidemia. Of note, some information is being carried forward from prior records for informational purposes only and is being cited so that efficiency, safety and quality of the patient's care is not compromised This note was prepared using voice recognition software and direct typing Please excuse inadvertent marine electrician apprentice or typing errors, or uncorrected word substitutions Although every attempt has been made by the provider to proofread this document, occasional misspellings and typographical errors may still be present Due to the previous pandemic, and the use of personal protective equipment (PPE) This may decrease voice recognition accuracy Inadvertent marine electrician apprentice errors may occur 08/09/2023 Type 2 diabetes mellitus without complication, without long-term current use of insulin (ICD-10 - E11.9) 08/09/2023 Patient here today for CCM Liver lesion, MRI of the abdomen w, w/o Unremarkable benign hepatic cysts Pulmonary nodule, 1 year follow-up CT chest w/o due 12/2023* strong familial hx of DM, HLD *Increase atorvastatin to 40 mg Some hemoconcentraation, H&H slightly up TSH chronically managed by endocrine Recently increased dosage because his TSH was too high. history of radioiodine treatment on chronic levothyroxine We discussed the role of cholesterol and atherosclerosis. Cholesterols broken down into some particles. Cholesterol very important for her body and has an important role in the synthesis of various hormones and neurotransmitters. However, today's cholesterol can have potential complications. Small density LDL particles that are oxidized or particularly dangerous. HDL cholesterol can have a protective effect. Elevated triglycerides levels are also dangerous. An elevated triglyceride and HDL ratio could be a sign of insulin resistance. Statins, fibrates, niacin, fish oil, DHEA, can be beneficial in treatment of dyslipidemia. Lifestyle modification with exercise and appropriate nutrition can decrease the risk of atherosclerosis due to dyslipidemia. Of note, some information is being carried forward from prior records for informational purposes only and is being cited so that efficiency, safety and quality of the patient's care is not compromised This note was prepared using voice recognition software and direct typing Please excuse inadvertent marine electrician apprentice or typing errors, or uncorrected word substitutions Although every attempt has been made by the provider to proofread this document, occasional misspellings and typographical errors may still be present Due to the previous pandemic, and the use of personal protective equipment (PPE) This may decrease voice recognition accuracy Inadvertent marine electrician apprentice errors may occur 08/09/2023 Encounter for genera l adult medical examination without abnormal findings (ICD-10 - Z00.00) 08/09/2023 Patient here today for CCM Liver lesion, MRI of the abdomen w, w/o Unremarkable benign hepatic cysts Pulmonary nodule, 1 year follow-up CT chest w/o due 12/2023* strong familial hx of DM, HLD *Increase atorvastatin to 40 mg Some hemoconcentraation, H&H slightly up TSH chronically managed by endocrine Recently increased dosage because his TSH was too high. history of radioiodine treatment on chronic levothyroxine We discussed the role of cholesterol and atherosclerosis. Cholesterols broken down into some particles. Cholesterol very important for her body and has an important role in the synthesis of various hormones and neurotransmitters. However, today's cholesterol can have potential complications. Small density LDL particles that are oxidized or particularly dangerous. HDL cholesterol can have a protective effect. Elevated triglycerides levels are also dangerous. An elevated triglyceride and HDL ratio could be a sign of insulin resistance. Statins, fibrates, niacin, fish oil, DHEA, can be beneficial in treatment of dyslipidemia. Lifestyle modification with exercise and appropriate nutrition can decrease the risk of atherosclerosis due to dyslipidemia. Of note, some information is being carried forward from prior records for informational purposes only and is being cited so that efficiency, safety and quality of the patient's care is not compromised This note was prepared using voice recognition software and direct typing Please excuse inadvertent marine electrician apprentice or typing errors, or uncorrected word substitutions Although every attempt has been made by the provider to proofread this document, occasional misspellings and typographical errors may still be present Due to the previous pandemic, and the use of personal protective equipment (PPE) This may decrease voice recognition accuracy Inadvertent marine electrician apprentice errors may occur PLAN OF TREATMENT Pending Test Test Name Order Date X ray : Elbow, left 07/11/2021 TSH 06/26/2021 FSH and LH 11/23/2020 MRI : Abdomen with Contrast 01/15/2023 MRI : Abdomen with and without Contrast 05/03/2023 25OH VITAMIN D 07/02/2022 25OH VITAMIN D 05/03/2023 25OH VITAMIN D 11/23/2020 BASIC METABOLIC PANEL 12/06/2020 CBC (COMPLETE BLOOD COUNT) 11/23/2020 CBC (COMPLETE BLOOD COUNT) 07/02/2022 CBC (COMPLETE BLOOD COUNT) 05/03/2023 CBC (COMPLETE BLOOD COUNT) WITH DIFF 01/2024 COMPREHENSIVE METABOLIC PANEL 04/04/2024 COMPREHENSIVE METABOLIC PANEL 07/02/2022 COMPREHENSIVE METABOLIC PANEL 05/03/2023 COMPREHENSIVE METABOLIC PANEL 11/23/2020 COMPREHENSIVE METABOLIC PANEL 06/26/2021 HEMOGLOBIN A1C 11/23/2020 HEMOGLOBIN A1C 05/03/2023 HEMOGLOBIN A1C 12/06/2020 HEMOGLOBIN A1C 07/02/2022 HEMOGLOBIN A1C 04/04/2024 LIPID PANEL 04/04/2024 LIPID PANEL 06/13/2021 LIPID PANEL 05/03/2023 LIPID PANEL 07/02/2022 LIPID PANEL 11/23/2020 PSA, SCREEN 11/23/2020 PSA, SCREEN 06/26/2021 SEX HORMONE BINDING GLOBULIN (SHBG) 10/27 T4, TOTAL 04/04/2024 TSH 05/03/2023 TSH 04/04/2024 TSH 07/02/2022 URINALYSIS W/REFLEX CULTURE 05/03/2023 Testosterone Level Total and Free 2020 Lipid Panel 06/26/2021 Glycohemoglobin (HGB A1C) Panel 06/26/19 CT Chest w/o Contrast 11/30/2023 CBC WITH AUTO DIFF 06/26/2021 FREE T4 06/26/2021 LIPID PANEL, STANDARD 08/09/2023 URINALYSIS, COMPLETE 04/04/2024 HEMOGLOBIN A1c 08/09/2023 PSA (FREE AND TOTAL) 04/04/2024 VITAMIN D, 1,25 DIHYDROXY LC/MS/MS 04/04 COMPLETE URINALYSIS 07/02/2022 COMPLETE URINALYSIS 06/26/2021 COMPLETE URINALYSIS 11/23/2020 CT Abdomen Pelvis W Cont 01/01/2023 Future Test Test Name Order Date LIPID PANEL 02/06/2023 Next Appt Details Provider Name:ZAKI PERDOMO, 08/10/2024 10:00:00 AM, [address] [facility] [address], [place], [address], Insurance Providers Payer Name Payer Address Payer Phone Subscriber Number Group Number Insured Name Patient Relationship to Insured Coverage Start Date Coverage End Date [employer] and [employer] [facility] [address] [place] [address] [id number] Michele Sherman Self - patient is the insured MEDICAL (GENERAL) HISTORY Medical History History ICD Code hyperthyroidism Surgical History Surgery Date(Month/Year) hernia repair 2019 lymph node removed from under armpit [phone]
--- OUTSIDE RECORDS SUMMARY | 2024-07-23 08:59 | XMS_ITS | Clinical Summary ---
Author Organization [facility] Address [address] [place] [address] Phone Care Team Providers Care Store Keeper Name Role Phone Unavailable Primary Care Provider Unavailabl e Surgical History Surgery Date Site/Laterality Comments HERNIA REPAIR PROCEDURE: REPAIR INGUINAL HERNIA Medical History Medical History Date Comments Hyperlipidemia DX:Hyperlipidemi a Diabetes mellitus type 2, co ntrolled, with complications (CMS/HCC) DX:Diabetes mellitus type 2, controlled, with complications (HCC) Hypothyroidism DX:Hypothyroidis m Social History Tobacco Use Types Packs/Day Years Used Date Smoking Tobacco: Some Days Smokeless Tobacco: Never Alcohol Use Standard Drinks/Week Comments Yes 0 (1 standard drink = 0.6 oz pur e alcohol) Sex and Gender Information Value Date Recorded Sex Assigned at Not on file Legal Sex Male 11:59 PM EST Gender Identity Not on file Sexual Orientation Not on file Obstetrics History Last Filed Vital Signs Vital Sign Reading Time Taken Comments Blood Pressure 127/84 08/08/2021 8:04 AM EDT Sit ting R Arm Pulse 76 08/08/2021 8:04 AM EDT Temperature - - Respiratory Rate - - Oxygen Saturation - - Inhaled Oxygen Concentration - - Weight 81.6 kg (180 lb) 09/07/2021 8:07 AM EDT Height 182.9 cm (6') 09/07/2021 8:07 AM EDT Body Mass Index 24.41 09/07/2021 8:07 AM EDT Plan of Treatment Health Maintenance Due Date Last Done Comments DTaP,Tdap,and Td Vaccines (1 - Tdap) 1985 Hepatitis B Vaccines (1 of 3 - 19+ 3-dose series) 1985 Pneumococcal Vaccine: 50+ Ye ars (1 of 2 - PCV) 1985 Pneumococcal Vaccine: Pediat rics (0 to 5 Years) and At-Risk Patients (6 to 64 Years) (1 of 2 - PCV) 1985 Zoster Vaccines (1 of 2) 02/25/2016 Cholesterol Screening (Lipid Panel) 04/29/2022 Colorectal Cancer Screening: Colonoscopy 04/29/2022 Depression Screening 04/29/2022 HIV Screening 04/29/2022 Hepatitis C Screening 04/29/2022 Social Influencers of Health Screening 04/29/2022 COVID-19 Vaccine ( - 2023-2 5 season) 2024 Influenza Vaccine (#1) 2024 HIB Vaccines Aged Out No longer eligi ble based on patient's age to complete this topic HPV Vaccines Aged Out No longer eligi ble based on patient's age to complete this topic Hepatitis A Vaccines Aged Out No long er eligible based on patient's age to complete this topic IPV Vaccines Aged Out No longer eligi ble based on patient's age to complete this topic MMR Vaccines Aged Out No longer eligi ble based on patient's age to complete this topic Meningococcal ACWY Vaccine Aged Out N o longer eligible based on patient's age to complete this topic Meningococcal B Vacine Aged Out No lo nger eligible based on patient's age to complete this topic RSV Immunization Patients Un jose de jesus 20 months Aged Out No longer eligible b ased on patient's age to complete this topic Varicella Vaccines Aged Out No longer eligible based on patient's age to complete this topic
== END 2024-07-23 08:59 | disposition home or self-care (01) ==
PROVIDERS: PCP Internal Medicine; Visit Provider Urology
DX: E11.69 Type 2 diabetes mellitus with other specified complication (principal); N52.1 Erectile dysfunction due to diseases classified elsewhere; R68.82 Decreased libido
CPT/HCPCS: 99214